=== PATIENT | female | born 1970 | race Caucasian/White ===

== ENCOUNTER 2020-03-07 22:13 | Emergency (ER) | payer BC ==
[~2020-03-07] VITALS: Ht 172.7 cm; Wt 69.4 kg
--- NOTE | 2020-03-07 22:15 | NUR ---
PT CAME TO THE ER C/O HEADACHE AND R EYE SWELLING AND PAIN S/P GLF. PT STATES " I BLACKED OUT FOR A MINUTE.". PT AAOX4, VSS, RESPIRATIONS EVEN AND UNLABORED ON RA W/ NAD NOTED. 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
[2020-03-07] MEDS ORDERED: HYDROCODONE/APAP 5/325MG TABLET ONE (22:32)
[2020-03-07] MEDS: HYDROCODONE/APAP 5/325MG TABLET PO ONE (22:36)
[2020-03-07] MEDS ORDERED: AMOX/CLAVULANATE 875 MG TABLET ONE (23:29)
[2020-03-07] MEDS: AMOX/CLAVULANATE 875 MG TABLET PO ONE (23:35)
--- NOTE | 2020-03-07 23:42 | NUR ---
Patient discharged to home in stable condition. Written and verbal after care instructions given. Patient verbalizes understanding of instruction.pt. ambulatory with a steady gait
[2020-03-07 23:43] VITALS: BP 131/74
== END 2020-03-07 23:43 | disposition home or self-care (01) ==
LOC: ER 22:21
DX: S02.31XA Fracture of orbital floor, right side, initial encounter for closed fracture (principal); S02.40CA Maxillary fracture, right side, initial encounter for closed fracture; S09.8XXA Other specified injuries of head, initial encounter; W01.198A Fall on same level from slipping, tripping and stumbling with subsequent striking against other object, initial encounter; Y93.89 Activity, other specified; Y92.89 Other specified places as the place of occurrence of the external cause; Y99.8 Other external cause status
CPT/HCPCS: 70450-TC; 70486-TC; 72125-TC

== ENCOUNTER 2020-03-16 15:35 | Emergency (ER) | payer BC ==
[~2020-03-16] VITALS: Ht 172.7 cm; Wt 70.3 kg
[2020-03-16 16:12] VITALS: BP 103/70
--- NOTE | 2020-03-16 17:09 | NUR ---
Patient a/ox4, breathing even and unlabored, no sob noted. Patient discharged to home in stable condition. Written and verbal after care instructions given. Patient verbalizes understanding of instruction.
== END 2020-03-16 17:12 | disposition home or self-care (01) ==
LOC: ER 15:36
DX: R07.81 Pleurodynia (principal); E03.9 Hypothyroidism, unspecified
CPT/HCPCS: 71100-TC